=== PATIENT | female | born 1960 ===

== ENCOUNTER → 2016-07-02 14:57 | Outpatient (CLI) | payer BC | END | disposition home or self-care (01) | LOC: D.MAMMO 10:00 | DX: R92.8 Other abnormal and inconclusive findings on diagnostic imaging of breast (principal) ==

== ENCOUNTER 2020-12-04 06:10 | Day surgery (SDC) | payer OTHER ==
[~2020-12-04] VITALS: Ht 147.3 cm; Wt 65.3 kg
[~2020-12-04 06:10] MED LIST: HCTZ25 MG PO; POTASSIUM CHLORIDE PO; ZETIA10 MG PO
[2020-12-04 06:50] LABS: BASOPHILS 0.5 % (0-2); EOSINOPHILS 9.9 % (0-7); HEMATOCRIT 37.8 % (36.0-48.0); HEMOGLOBIN 12.6 g/dL (12-16); LYMPHOCYTES 19.6 % (15-50); MCH 28.1 pg (26.0-34.0); MCHC 33.3 g/dL (31.0-37.0); MCV 84.5 fL (80.0-100.0); MEAN PLATELET VOLUME 7.5 fL (7.4-10.4); MONOCYTES 9.2 % (2-11); NEUTROPHILS 60.8 % (40-80); PLATELET COUNT 307 10x3/uL (130-400); RBC 4.47 10x6/uL (4.00-5.40); RDW 14.5 % (11.5-14.5); WBC 6.6 10x3/uL (4.8-10.8)
[2020-12-04 07:03] LABS: CALC OSMOLALITY 282 mosm/kg (275-300); CALCIUM 8.8 mg/dL (8.5-10.1); CARBON DIOXIDE 28.3 mmol/L (21.0-32.0); CHLORIDE - SERUM 109 mmol/L (98-107); CREATININE - SERUM 0.6 mg/dL (0.6-1.3); GLUCOSE 94 mg/dL (74-106); POTASSIUM - SERUM 3.9 mmol/L (3.5-5.1); SODIUM 143 mmol/L (136-145); UREA NITROGEN 8 mg/dL (7-18); eGFR NON AFRICAN AMERICAN > 90 mL/min (90-120)
[2020-12-04 07:41] VITALS: BP 140/87; Ht 147.3 cm; Wt 65.3 kg
[2020-12-04] MEDS ORDERED: HYDROCODON-ACE1 EAC7 PO (13:59)
--- NOTE | 2020-12-04 16:40 | NUR ---
1600M IV REMOVED AND INSTRUCTIONS GIVEN
== END 2020-12-04 16:08 | disposition home or self-care (01) ==
LOC: D.OPS 06:10
PROVIDERS: Anesthesiology; ATTEND Podiatrist Foot & Ankle Surgery
DX: M20.12 Hallux valgus (acquired), left foot (principal); M21.612 Bunion of left foot; E78.2 Mixed hyperlipidemia; K21.9 Gastro-esophageal reflux disease without esophagitis; I10 Essential (primary) hypertension